=== PATIENT | male | born 1955 | race Caucasian/White ===

== ENCOUNTER → 2021-04-09 10:03 | Outpatient (CLI) | payer BC, SELFPAY ==
--- NOTE | 2021-04-09 10:14 | RAD_ITS ---
STUDY: X-RAY CHEST REASON FOR EXAM: Male, 65 years old. Dyspnea. TECHNIQUE: PA and lateral views of the chest. COMPARISON: None. FINDINGS: The lungs are clear and expanded. There is no demonstrated pleural abnormality. Normal size heart. Normal mediastinum and sybil. Normal visualized pulmonary arteries. There is atherosclerotic calcification of the aortic arch with tortuosity. There are diffuse degenerative changes of the visualized thoracic spine. There is degenerative osteoarthritis of the bilateral shoulders. There is no demonstrated abnormality of the visualized soft tissue structures of the upper abdomen. RAD/Chest PA and Lateral IMPRESSION: Degenerative changes, as described above. No demonstrated acute cardiopulmonary process. Electronically Signed: Gee Morton DO at 23:58 EDT Tel [phone], Service support ,
[2021-04-09 11:06] LABS: Allen Test Positive; Base Excess 0 mmol/L (-2 to +2); Bicarbonate 23.9 mmol/L (22-26); Blood Gas Specimen Type ART; O2 Delivery Device Room Air; PO2 82 mmHG (75-100); SITE R Brach; SO2 97 % (95-99); Total Carbon Dioxide 25 mmol/L; pCO2 34.7 mmHg (35-45); pH 7.45 (7.35-7.45)
== END ==
PROVIDERS: PCP Family Medicine; Referring Provider Internal Medicine Pulmonary Disease; Visit Provider Internal Medicine Pulmonary Disease
DX: R06.00 Dyspnea, unspecified (principal); R00.1 Bradycardia, unspecified; I10 Essential (primary) hypertension
CPT/HCPCS: 36600; 71046; 82803

== ENCOUNTER → 2021-04-11 08:40 | Outpatient (CLI) | payer BC, SELFPAY ==
--- NOTE | 2021-04-11 08:42 | RAD_ITS ---
PROCEDURE: Sniff test. DATE OF EXAMINATION: 04/11/2021. INDICATION: Male, 65 years old. Dyspnea FLUOROSCOPY TIME (if supplied): (9 seconds) minutes/seconds. 2 images were obtained. RAD/Fluoroscopy 1 Hr or Less IMPRESSION: Normal sniff test. The diaphragms demonstrate normal movement. Electronically Signed: Red Pugh MD at 9:31 EDT , Service support ,
== END ==
PROVIDERS: PCP Family Medicine; Referring Provider Internal Medicine Pulmonary Disease; Visit Provider Internal Medicine Pulmonary Disease
DX: R06.00 Dyspnea, unspecified (principal)
CPT/HCPCS: 76000